=== PATIENT | female | born 1945 | race Caucasian/White ===

== ENCOUNTER 2023-12-19 12:24 | Outpatient (CLI) | payer BC | END 2023-12-19 19:02 | disposition home or self-care (01) | LOC: SNM 12:24 | PROVIDERS: ATTEND Internal Medicine | DX: K62.5 Hemorrhage of anus and rectum (principal); R10.9 Unspecified abdominal pain; Z80.0 Family history of malignant neoplasm of digestive organs | CPT/HCPCS: 78264; A9541 ==